=== PATIENT | female | born 1970 | race Caucasian/White ===

== ENCOUNTER 2017-03-26 23:35 | Observation (INO) | payer MEDICAID ==
[2017-03-26] MEDS ORDERED: HYDROmorphONE/DILAUDID 1 MG/ML INJ IVP ONE (23:54)
[2017-03-26] MEDS ORDERED: NS 1,000 ML IV ONE (23:54)
[2017-03-26] MEDS ORDERED: ONDANSETRON 4 MG/2 ML VIAL IVP ONE (23:54)
--- NOTE | 2017-03-26 23:54 | EDPHY ---
H & P Stated Complaint: right side abd pain that 4 hours ago HPI/ROS: HPI CHIEF COMPLAINT: Abdominal pain HISTORY OF PRESENT ILLNESS: Patient very pleasant 46-year-old female, she presents emergency room with right upper quadrant abdominal pain. Patient reports to me this started suddenly around 7:00 p.m. this evening. She ate scrambled egg which she is on it around 6-630. Shortly after that she developed right upper quadrant sharp stabbing 9/10 pain. Does not radiate anywhere. It is located focal right lower quadrant. Does not go to her back. She denies chest pain or shortness of breath. She does have nausea but no vomiting. Denies fever. She has had this pain similar in the past but never this severe. Past Medical History: Denies significant medical history Past Surgical History: Denies significant surgical history Social History: Lives locally, denies drugs alcohol tobacco. Family History: Noncontributory ROS REVIEW OF SYSTEMS: A comprehensive 10 point review of systems is otherwise negative aside from elements mentioned in the history of present illness. Exam Constitutional appears well nontoxic triage nursing summary reviewed, vital signs reviewed, awake/alert. Eyes normal conjunctivae and sclera, EOMI, PERRLA. HENT normal inspection, atraumatic, moist mucus membranes, no epistaxis, neck supple/ no meningismus, no raccoon eyes. Respiratory clear to auscultation bilaterally, normal breath sounds, no respiratory distress, no wheezing. Cardiovascular rate normal, regular rhythm, no murmur, no edema, distal pulses normal. Gastrointestinal tender palpation right upper quadrant, no rebound, no guarding , normal bowel sounds, no distension, no pulsatile mass. Genitourinary no CVA tenderness. Musculoskeletal no midline vertebral tenderness, full range of motion, no calf swelling, no tenderness of extremities, no meningismus, good pulses, neurovascularly intact. Skin pink, warm, & dry, no rash, skin atraumatic. Neurologic awake, alert and oriented x 3, AAOx3, moves all 4 extremities equally, motor intact, sensory intact, CN II-XII intact, normal cerebellar, normal vision, normal speech. Psychiatric normal mood/affect. Heme/Lymph/Immune no lymphadenopathy. Differential diagnosis includes but is not limited to and in no particular order : Bowel obstruction, appendicitis, gallbladder disease, diverticulitis, colitis , enteritis, perforated viscus, gastritis, GERD, esophagitis, urinary tract infection, pyelonephritis, kidney stones Medical Decision Making: Plan for this patient IV establishment with IV fluid 1 L normal saline, IV wide for acute pain control, 4 mg IV Zofran nausea, check basic blood work, ultrasound right upper quadrant, EKG and troponin. Re- evaluate. Evaluate for acute cholecystitis versus biliary colic versus obstructing stone. Re-evaluation: EKG: Time of EKG 0004 this is sinus rhythm rate of 66. I do not appreciate acute ischemic change. 0143AM: Patient's blood work reviewed. Ultrasound shows acute cholecystitis. Called to me by Dr. Goldstein. Patient be admitted to the hospital with a surgical evaluation for acute cholecystitis. She is NPO. I have ordered her IV Invanz. She has had IV fluids. Will re-evaluate. Plan for admission with Dr. Melendrez. Source: Patient - Personal History LMP (Females 10-55): 15-21 Days Ago Current Tetanus/Diphtheria Vaccine: Yes Current Tetanus Diphtheria and Acellular Pertussis (TDAP): Yes - Medical/Surgical History Hx Asthma: No Hx Chronic Respiratory Disease: No Hx Diabetes: No Hx Cardiac Disease: No Hx Renal Disease: No Hx Cirrhosis: No Hx Alcoholism: Yes Hx HIV/AIDS: No Hx Splenectomy or Spleen Trauma: No Other PMH: denies - Social History Smoking Status: Never smoked Constitutional: Initial Vital Signs Temperature (C) 36.4 C 03/26/17 23:45 Heart Rate 76 03/26/17 23:45 Respiratory Rate 16 03/26/17 23:45 Blood Pressure 110/79 03/26/17 23:45 O2 Sat (%) 98 03/26/17 23:45 O2 Delivery Mode Room Air Allergies/Adverse Reactions: Sulfa (Sulfonamide Antibiotics) Allergy (Verified 03/26/17 23:48) Home Medications: Medication Instructions Recorded Lurasidone HCl [Latuda] 80 mg PO HS 03/26/17 Omeprazole [Prilosec 20 mg] 20 mg PO DAILY 03/26/17 QUEtiapine FUMARATE [Seroquel 100 100 mg PO HS 03/26/17 mg (*)] Ibuprofen [Motrin (*)] 200 mg PO DAILY PRN 03/27/17 Oxymetazoline HCl [Afrin Nasal 1 spray EACHNARE BID PRN 03/27/17 [place] (OTC)] lamoTRIgine [LamICTAL 100 MG (*)] 300 mg PO HS 03/27/17 Medical Decision Making - Data Points Laboratory Results: Laboratory Results 03/26/17 00:12 03/26/17 00:12 Medications Given: Hydromorphone HCl (Dilaudid) 0.2 - 0.4 mg IVP Q1HR PRN PRN Reason: Pain, Severe Unable to Take PO Stop: 04/06/17 14:36 Last Admin: 03/27/17 18:15 Dose: 0.4 mg Potassium Chloride/Dextrose/Sod Cl (D5w 1/2 Ns W/ 20 Kcl/L) 1,000 mls @ 100 mls /hr IV CONT [facility] Stop: 09/23/17 01:29 Last Admin: 03/27/17 02:11 Dose: 1,000 mls Ketorolac Tromethamine (Toradol) 15 mg IVP Q6HRS [facility] Stop: 04/01/17 15:14 Last Admin: 03/27/17 21:04 Dose: 15 mg Lamotrigine (Lamictal) 300 mg PO HS [facility] Stop: 09/23/17 20:59 Last Admin: 03/27/17 22:27 Dose: Not Given Lurasidone HCl (Latuda) 80 mg PO HS [facility] Stop: 09/23/17 20:59 Last Admin: 03/27/17 22:27 Dose: Not Given Ondansetron HCl (Zofran) 4 mg IVP Q4HRS PRN PRN Reason: Nausea/Vomiting, Can't Take PO Stop: 09/23/17 01:15 Last Admin: 03/27/17 06:31 Dose: 4 mg Oxycodone HCl (Oxycodone Ir) 5 - 10 mg PO Q4HRS PRN PRN Reason: Pain, Severe Able to Take PO Stop: 04/06/17 14:37 Last Admin: 03/28/17 01:14 Dose: 10 mg Pantoprazole Sodium (Protonix) 40 mg PO DAILY [facility] Stop: 09/23/17 08:59 Last Admin: 03/27/17 16:49 Dose: 40 mg Quetiapine Fumarate (Seroquel) 100 mg PO HS [facility] Stop: 09/23/17 20:59 Last Admin: 03/27/17 22:28 Dose: Not Given Senna/Docusate Sodium (Senokot-S) 1 - 2 tab PO BID [facility] PRN Reason: Protocol Stop: 09/23/17 20:59 Last Admin: 03/27/17 21:04 Dose: 1 tab Discontinued Medications Bupivacaine HCl (Sensorcaine 0.5% Vial) Confirm Administered Dose 30 ml .ROUTE .STK-MED ONE Stop: 03/27/17 08:57 Last Admin: 03/27/17 16:00 Dose: Not Given Ertapenem (Invanz) 1 gm IVP EDNOW ONE PRN Reason: Protocol Stop: 03/27/17 01:03 Last Admin: 03/27/17 01:21 Dose: 1 gm Fentanyl (Sublimaze) 25 - 100 mcg IVP Q5M PRN PRN Reason: PACU, IMMEDIATE Pain control Stop: 03/27/17 11:23 Last Admin: 03/27/17 12:32 Dose: 100 mcg Hydromorphone HCl (Dilaudid) 1 mg IVP EDNOW ONE Stop: 03/26/17 23:55 Last Admin: 03/27/17 00:12 Dose: 1 mg Sodium Chloride (Ns) 1,000 mls @ 0 mls/hr IV EDNOW ONE; Wide Open PRN Reason: Protocol Stop: 03/26/17 23:55 Last Admin: 03/27/17 00:11 Dose: 1,000 mls Lactated Ringer's (Lr) 1,000 mls @ 0 mls/hr IV ONCE ONE PRN Reason: Per Protocol Stop: 03/27/17 08:54 Last Admin: 03/27/17 09:40 Dose: 1,000 mls Midazolam HCl (Versed) 2 mg IVP ONCALL ONE Stop: 03/27/17 10:22 Last Admin: 03/27/17 14:36 Dose: Not Given Morphine Sulfate (Morphine) 2 mg IVP Q1HR PRN PRN Reason: Pain, Severe Unable to Take PO Stop: 04/06/17 01:15 Last Admin: 03/27/17 13:42 Dose: 2 mg Ondansetron HCl (Zofran) 4 mg IVP EDNOW ONE Stop: 03/26/17 23:55 Last Admin: 03/27/17 00:11 Dose: 4 mg Departure - Departure Disposition: [facility] Acute Clinical Impression: Acute cholecystitis Condition: Good
--- NOTE | 2017-03-27 00:06 | CPEKG ---
Heart Rate: 66 RR Interval: 909 P-R Interval: 156 QRSD Interval: 86 QT Interval: 396 QTC Interval: 415 P [place]: 47 QRS [place]: 50 T Wave [place]: 13 EKG Severity - NORMAL ECG - EKG Impression: SINUS RHYTHM Electronically Signed By: Compa Britton 27-Mar-2017 06:59:32
[2017-03-27 00:45] LABS: PLATELET COUNT 281 10^3/uL (150-400)
[2017-03-27 00:50] LABS: INR 0.97 (0.83-1.16); PROTIME(PATIENT) 13.1 SEC (12.0-15.0)
[2017-03-27] MEDS ORDERED: ERTAPENEM 1 GM VIAL IVP ONE (01:02)
[2017-03-27] MEDS ORDERED: ONDANSETRON 4 MG/2 ML VIAL ONE (01:30)
[2017-03-27] MEDS ORDERED: D5W 1/2 NS W/ 20 KCl/L 1,000 ML IV SCH (01:30)
[2017-03-27] MEDS: ONDANSETRON 4 MG/2 ML VIAL IVP PRN ×2 (01:32→06:31)
[2017-03-27] MEDS ORDERED: LR 1,000 ML IV ONE (08:53)
[2017-03-27] MEDS ORDERED: BUPIVACAINE 0.5% 30 ML SDV ONE (08:56)
[2017-03-27] MEDS ORDERED: NON-FORMULARY NEW DRUG (Omeprazole [Prilosec 20 Mg] 20 MG) PO SCH (09:00)
--- NOTE | 2017-03-27 09:16 | GHP ---
[f rep st] HISTORY AND PHYSICAL DATE OF ADMISSION: 03/27/2017 CHIEF COMPLAINT: Acute cholecystitis with possible choledocholithiasis. HISTORY OF PRESENT ILLNESS: The patient is a 46-year-old woman who had abrupt onset of abdominal melia n at around 7 p.m. on March 26, 2017, after eating scrambled eggs with cheese. She rated the pain as a 9/10. It did not radiate, it was in the right quadrant. In the emergency room, she had a workup, in cluding an ultrasound which showed cholelithiasis with cholecystitis, and her LFTs were elevated. PAST MEDICAL HISTORY: None. PAST SURGICAL HISTORY: None. SOCIAL HISTORY: She denies tobacco, alcohol, or drug use. FAMILY HISTORY: Noncontributory. REVIEW OF SYSTEMS: A 10-point review of systems is negative except per HPI. PHYSICAL EXAMINATION: VITAL SIGNS: Reviewed. She is afebrile and her vitals are stable. GENERAL: A pleasant, well-nourished, well-groomed woman. In no acute distress. HEENT: Normocephalic. No g ross hearing deficits. Mucous membranes moist. Pupils equal and round. No scleral icterus. LUNGS: Clear to auscultation bilaterally. No increased work of breathing. CARDIAC: Regular rate. No pe ripheral edema. ABDOMEN: Bowel sounds present. She is tender in the right upper quadrant, closer t o the epigastrium. No surgical incisions. MUSCULOSKELETAL: Normal nails. SKIN: Warm and dry. NE URO: Grossly intact. PSYCH: Mood and affect normal. LAB RESULTS: I personally reviewed the results of the ultrasound, as well as her labs. IMPRESSION AND PLAN: The patient is a 46-year-old woman with cholecystitis and possible choledocholi thiasis. I will take her to the operating room for a laparoscopic cholecystectomy with intraoperativ e cholangiogram. The risks and benefits, including, but not limited to, stroke, heart attack, , blood clots, infection, bleeding, damage to surrounding structures, such as the intestine or common bile duct were discussed. She had her questions answered to her satisfaction and signed the consent. /[id number]/MODL
[2017-03-27] MEDS ORDERED: IOTHALAMATE MEG (CONRAY) 50 ML VIAL IV ONE (09:21)
--- NOTE | 2017-03-27 10:19 | SOAPPROG ---
SOAP Progress Note Assessment/Plan: Assessment/Plan: 46yo F with acute cholelithiasis, poss choledocholithiasis To OR this am for lap nehemiah with IOC Antibiotics OCTOR Consent signed in chart 03/27/17 10:19 Objective: Vital Signs Temp Pulse Resp BP Pulse Ox 37.0 C 78 16 107/66 91 L 03/27/17 08:25 03/27/17 08:25 03/27/17 08:25 03/27/17 08:25 03/27/17 08:25 03/26/17 03/27/17 03/28/17 05:59 05:59 05:59 Intake Total 1000 Balance 1000 PT 13.1 SEC (12.0-15.0) 03/26/17 00:12 INR 0.97 (0.83-1.16) 03/26/17 00:12 ICD10 Worksheet Patient Problems: Problems Problem Status Onset Acute cholecystitis Acute
[2017-03-27] MEDS ORDERED: MIDAZOLAM 2 MG/2 ML VIAL IVP ONE (10:21)
[2017-03-27] MEDS ORDERED: NALOXONE HCL 0.4 MG/ML INJ IVP PRN (10:23)
[2017-03-27] MEDS ORDERED: ONDANSETRON 4 MG/2 ML VIAL IVP PRN (10:23)
[2017-03-27] MEDS ORDERED: HYDROmorphONE/DILAUDID 1 MG/ML INJ IVP PRN (10:23)
[2017-03-27] MEDS ORDERED: ALBUTEROL 3 ML DEYVIAL IH PRN (10:23)
[2017-03-27] MEDS ORDERED: LABETALOL HCL 5 MG/ML 20 ML MDV IVP PRN (10:23)
[2017-03-27] MEDS ORDERED: fentaNYL 100 MCG/2 ML INJ IVP PRN (10:23)
[2017-03-27] MEDS ORDERED: DEXAMETHASONE 4 MG/ML VIAL IVP PRN (10:23)
--- NOTE | 2017-03-27 10:23 | PDANEPAE ---
ANE History of Present Illness here for chilo cerna AMBROSE Past Medical History - Cardiovascular History Hx Hypertension: No Hx Arrhythmias: No Hx Chest Pain: No Hx Coronary Artery / Peripheral Vascular Disease: No Hx CHF / Valvular Disease: No Hx Palpitations: No - Pulmonary History Hx COPD: No Hx Recent Upper Respiratory Infection: No Hx Oxygen in Use at Home: No Hx Sleep Apnea: No Sleep Apnea Screening Result - Last Documented: Negative - Endocrine History Hx Diabetes: No Hypothyroid: No Hyperthyroid: No Obesity: no - Renal History Hx Renal Disorders: No - Liver History Hx Hepatic Disorders: No - Neurological & Psychiatric Hx Hx Neurological and Psychiatric Disorders: Yes Neurological / Psychiatric History Comment: depression bipolar - Cancer History Hx Cancer: No ANE Review of Systems Review of systems is: negative Review of Systems: - Exercise capacity Exercise capacity: >=4 METS ANE Patient History - Allergies Allergies/Adverse Reactions: Sulfa (Sulfonamide Antibiotics) Allergy (Verified 03/26/17 23:48) - Home Medications Home medications: home medication list seen and reviewed Home Medications: Lurasidone HCl [Latuda] 80 mg PO HS 03/26/17 [Last Taken 03/26/17] Omeprazole [Prilosec 20 mg] 20 mg PO DAILY 03/26/17 [Last Taken 03/26/17] QUEtiapine FUMARATE [Seroquel 100 mg (*)] 100 mg PO HS 03/26/17 [Last Taken ] Ibuprofen [Motrin (*)] 200 mg PO DAILY PRN 03/27/17 [Last Taken 03/26/17 21:00] Oxymetazoline HCl [Afrin Nasal [place] (OTC)] 1 spray EACHNARE BID PRN 03/27/17 [ Last Taken 03/26/17 21:00] lamoTRIgine [LamICTAL 100 MG (*)] 300 mg PO HS 03/27/17 [Last Taken 03/26/17] - NPO status NPO Status: no food or drink >8 hours NPO Since - Liquids (Date): 03/27/17 NPO Since - Liquids (Time): 03:30 NPO Since - Solids (Date): 03/26/17 NPO Since - Solids (Time): 18:30 - Smoking Hx Smoking Status: Never smoked ANE Labs/Vital Signs - Labs Result Diagrams: 03/26/17 00:12 03/26/17 00:12 - Vital Signs Vital Signs: reviewed preoperatively; see RN documention for details Blood Pressure: 107/66 Heart Rate: 78 Respiratory Rate: 16 O2 Sat (%): 91 Height: 160.02 cm Weight: 71.668 kg ANE Physical Exam - Airway Neck exam: FROM Mallampati Score: Class 1 - Pulmonary Pulmonary: no respiratory distress - Cardiovascular Cardiovascular: regular rate and rhythym - ASA Status ASA Status: II ANE Anesthesia Plan Anesthesia Plan: general endotracheal anesthesia
[2017-03-27] MEDS ORDERED: fentaNYL 100 MCG/2 ML INJ ONE ×3 (10:26→12:30)
[2017-03-27] MEDS ORDERED: PROPOFOL/EMULSION 500 MG/50 ML BOTTLE IV ONE (10:29)
--- NOTE | 2017-03-27 11:45 | POSTOPPROG ---
Post Op Note Date of Operation: 03/27/17 Surgeon: Greta Melenrdez Buggy Runner: axel Anesthesiologist: bri Anesthesia: GET(General Endotracheal) Pre-op Diagnosis: acute cholecystitis, poss choledocholithiasis Post-op Diagnosis: acute calculous cholecystitis Indication: 46yo F RUQ pain Procedure: lap nehemiah, IOC Findings: IOC without filling defect Inf/Abcess present in the surg proc area at time of surgery?: No EBL: Minimal Specimen(s): gallbladder
[2017-03-27] MEDS ORDERED: GLYCOPYRROLATE 0.2 MG/1 ML VIAL ONE ×2 (11:55)
[2017-03-27] MEDS ORDERED: NEOSTIGMINE METHYLSULFATE 3 MG/3 ML SYR ONE (11:55)
[2017-03-27] MEDS ORDERED: BISACODYL 10 MG SUPP PR PRN (14:38)
[2017-03-27] MEDS ORDERED: POLYETHYLENE GLYCOL 3350 17 GM PKT PO PRN (14:38)
[2017-03-27] MEDS ORDERED: MAGNESIUM HYDROXIDE 30 ML UDCUP PO PRN (14:38)
[2017-03-27] MEDS ORDERED: LACTULOSE 20 GM/30 ML UDCUP PO PRN (14:38)
[2017-03-27] MEDS: HYDROmorphONE/DILAUDID 1 MG/ML INJ IVP PRN ×2 (14:54→18:15)
[2017-03-27] MEDS: KETOROLAC 15 MG/1 ML SDV IVP SCH ×2 (15:23→21:04)
[2017-03-27] MEDS: PANTOPRAZOLE SODIUM 40 MG TAB PO SCH (16:49)
[2017-03-27] MEDS: oxyCODONE IR 5 MG TAB PO PRN ×2 (20:02→21:16)
[2017-03-27] MEDS ORDERED: LURASIDONE HCL 80 MG TAB PO SCH (21:00)
[2017-03-27] MEDS ORDERED: QUEtiapine FUMARATE 100 MG TAB PO SCH (21:00)
[2017-03-27] MEDS ORDERED: lamoTRIgine 100 MG TAB PO SCH (21:00)
[2017-03-27] MEDS: SENNOSIDES/DOCUSATE SODIUM TAB PO SCH (21:04)
[2017-03-28] MEDS: oxyCODONE IR 5 MG TAB PO PRN ×3 (01:14→13:16)
[2017-03-28] MEDS: KETOROLAC 15 MG/1 ML SDV IVP SCH ×3 (03:18→15:13)
[2017-03-28 03:28] LABS: PLATELET COUNT 270 10^3/uL (150-400)
[2017-03-28] MEDS: PANTOPRAZOLE SODIUM 40 MG TAB PO SCH (09:04)
[2017-03-28] MEDS: SENNOSIDES/DOCUSATE SODIUM TAB PO SCH (09:04)
[2017-03-28 13:15] VITALS: BP 103/70; PULSE 66; RESP 17; TEMP 98; O2SAT 96
[2017-03-28] MEDS ORDERED: SIMETHICONE 80 MG TAB CHEW PO PRN (13:38)
--- NOTE | 2017-03-28 17:24 | SOAPPROG ---
SOVIVEK Progress Note Assessment/Plan: Assessment: POD # 1 s/p lap nehemiah doing well Plan: 03/28/17 17:24 Objective: Vital Signs Temp Pulse Resp BP Pulse Ox 36.7 C 66 17 103/70 96 03/28/17 12:30 03/28/17 12:30 03/28/17 12:30 03/28/17 12:30 03/28/17 12:30 Laboratory Results 03/28/17 01:30 03/28/17 01:30 03/27/17 03/28/17 03/29/17 05:59 05:59 05:59 Intake Total 1000 1220 Balance 1000 1220 PT 13.1 SEC (12.0-15.0) 03/26/17 00:12 INR 0.97 (0.83-1.16) 03/26/17 00:12 ICD10 Worksheet Patient Problems: Problems Problem Status Onset Acute cholecystitis Acute
== END 2017-03-28 17:55 | disposition home or self-care (01) ==
LOC: INTOOBSV 03-27 01:05 → FOB 03-27 03:15
PROVIDERS: ADMIT Surgery; ATTEND Surgery
DX: K80.00 Calculus of gallbladder with acute cholecystitis without obstruction (principal); K74.0 Hepatic fibrosis; F31.9 Bipolar disorder, unspecified
CPT/HCPCS: 47379; 47564; 76001; 76705; 93005; 96361; 96374; 96375; 99285; G0378; J1170; J1335; J1885; J2250; J2405; J2704; J2710; J3010; Q9961